=== PATIENT | male | born 1960 | race Caucasian/White ===

== ENCOUNTER 2019-06-16 13:19 | Emergency (ER) | payer BC ==
[~2019-06-16] VITALS: Ht 167.6 cm; Wt 60.8 kg
[2019-06-16] MEDS ORDERED: KEFLEX500 M2 PO (14:41)
[2019-06-16] MEDS ORDERED: BACTRIM DS TAB1 EACH PO (14:41)
[2019-06-16 14:58] VITALS: BP 124/70
== END 2019-06-16 14:58 | disposition home or self-care (01) ==
LOC: M.ERS 13:19
DX: L03.115 Cellulitis of right lower limb (principal); F31.9 Bipolar disorder, unspecified; F20.9 Schizophrenia, unspecified